=== PATIENT | female | born 1990 | race African-American/Black ===

== ENCOUNTER 2021-04-21 05:52 | Inpatient (IN) ==
[2021-04-21 04:21] LABS: Bacteria,Urine Occasional /HPF (Few); Bilirubin,Urine Negative (Negative); Blood, Urine Negative (Negative); Glucose,Urine (UA) Negative (Negative); Ketones,Urine Negative (Negative); Nitrite,Urine Negative (Negative); Protein,Urine Negative; RBC,Urine 1 /HPF (0-4); Squamous Epithelial Cell,Urine Occasional /HPF (0-10); Urine Appearance CLEAR (Clear); Urine Color Yellow (Yellow); Urine Specific Gravity 1.009 (1.001-1.035)
[~2021-04-21 05:52] MED LIST: BUTORPHANOL 2 MG/ML VIAL IV PRN; LACTATED RINGERS 1,000 ML IV ONE; ONDANSETRON 4 MG/2 ML VIAL IV PRN
[2021-04-21 06:31] LABS: Basophils % 0.3 % (0.0-0.8); Eosinophils # 0.1 10*3/uL (0.0-0.87); Eosinophils % 0.9 % (0.00-10.9); Hematocrit 33.5 VOL% (35.7-47.0); Hemoglobin 10.5 GM/DL (12.0-16.0); Immature Granulocytes Absolute 0.09 #; Lymphocytes # 2.5 10*3/uL (1.4-4.0); Lymphocytes % 27.5 % (21.3-54.2); Mean Corpuscular HGB Conc 31.3 GM/DL (32-36); Mean Corpuscular Volume 89.1 FL (87-102); Mean Platelet Volume 9.7 FL (9.6-12.0); Monocytes % 7.4 % (1.7-12.7); Neutrophils % 62.9 % (38.7-73.9); Platelet Count 383 T/CUMM (130-400); Red Blood Count 3.76 MC/CUMM (3.8-5.5); Red Cell Distribution Width 16.2 % (9.3-17.3)
[2021-04-21] MEDS: LACTATED RINGERS 1,000 ML IV SCH ×2 (06:35→10:06)
[2021-04-21 06:53] LABS: Albumin 2.8 G/DL (3.4-5.0); Bilirubin,Total 0.7 MG/DL (0.2-1.0); Osmolality,Calculated 271.7 MOS/KG (273-304); Potassium 3.9 MMOL/L (3.5-5.1); Total Protein 7.2 G/DL (6.4-8.2)
[2021-04-21] MEDS ORDERED: ePHEDrine 50 MG/ML VIAL IV PRN (07:38)
[2021-04-21] MEDS ORDERED: CITRIC ACID/SODIUM CITRATE 30 ML UDCUP PO ONE (07:38)
[2021-04-21] MEDS ORDERED: FAMOTIDINE 20 MG/2 ML VIAL IV ONE (07:38)
[2021-04-21] MEDS ORDERED: NALOXONE 0.4 MG/ML VIAL IV PRN (07:38)
[2021-04-21] MEDS ORDERED: fentaNYL 2 MCG/ROPIV 0.2% EPID 100 ML EPIDURAL SCH (08:00)
[2021-04-21] MEDS ORDERED: TRANEXAMIC ACID 1,000 MG/10 ML VIAL ONE (09:11)
[2021-04-21] MEDS ORDERED: miSOPROStoL 200 MCG TABLET ONE (09:11)
[2021-04-21] MEDS ORDERED: OXYTOCIN/LR 20 UNIT/1,000 ML BAG IV ONE ×2 (09:11→13:18)
[2021-04-21] MEDS ORDERED: CARBOPROST TROMETHAMINE 250 MCG/ML AMP IM ONE (09:12)
[2021-04-21] MEDS ORDERED: METHYLERGONOVINE 0.2 MG/1 ML AMP ONE (09:12)
[2021-04-21] MEDS ORDERED: OXYTOCIN/LR 20 UNIT/1,000 ML BAG IV SCH (10:30)
[2021-04-21 11:06] LABS: Cord Arterial Blood HCO3 22.1 MMOL/L
[2021-04-21 11:08] LABS: Cord Venous Blood HCO3 22.2 MMOL/L; Cord Venous Blood PCO2 34.4 MMHG; Cord Venous Blood PO2 35.3
[2021-04-21] MEDS ORDERED: ACETAMINOPHEN 325 MG TABLET PO PRN (13:18)
[2021-04-21] MEDS ORDERED: MEASLES/MUMPS/RUBELLA VACCINE 0.5 ML VIAL SUBCUT ONE (13:18)
[2021-04-21] MEDS ORDERED: RHO(D) IMMUNE GLOBULIN 300 MCG SYRINGE IM ONE (13:18)
[2021-04-21] MEDS ORDERED: HYDROCORTISONE 2.5% RECTAL CREAM 30 GM TUBE TOP PRN (13:18)
[2021-04-21] MEDS ORDERED: LANOLIN 50% CREAM 0.3 OZ TUBE TOP PRN (13:18)
[2021-04-21] MEDS ORDERED: DIPH/TET/ACEL PERT BOOSTER VACCINE 0.5 ML VIAL IM ONE (13:18)
[2021-04-21] MEDS ORDERED: BISACODYL 10 MG SUPP RECTAL PRN (13:18)
[2021-04-21] MEDS ORDERED: WITCH HAZEL PADS 100/JAR TOP PRN (13:18)
[2021-04-21] MEDS ORDERED: BENZOCAINE 20%/MENTHOL 0.5% SPRAY 56 GM CAN TOP PRN (13:18)
[2021-04-21] MEDS ORDERED: ACETAMINOPHEN/CODEINE 300-30 MG TABLET PO PRN (13:22)
[2021-04-21] MEDS: IBUPROFEN 800 MG TABLET PO PRN ×2 (13:31→20:08)
[2021-04-21] MEDS: DOCUSATE SODIUM 100 MG CAPSULE PO SCH (20:09)
[2021-04-22] MEDS: oxyCODONE/ACETAMINOPHEN 5-325 MG TABLET PO PRN ×2 (01:47→23:17)
[2021-04-22] MEDS: IBUPROFEN 800 MG TABLET PO PRN ×2 (01:48→23:17)
[2021-04-22 07:19] LABS: Basophils % 0.3 % (0.0-0.8); Eosinophils # 0.2 10*3/uL (0.0-0.87); Eosinophils % 1.8 % (0.00-10.9); Hematocrit 32.3 VOL% (35.7-47.0); Hemoglobin 9.9 GM/DL (12.0-16.0); Immature Granulocytes % 0.6 %; Immature Granulocytes Absolute 0.06 #; Lymphocytes # 3.5 10*3/uL (1.4-4.0); Mean Corpuscular HGB Conc 30.7 GM/DL (32-36); Mean Corpuscular Volume 90.7 FL (87-102); Mean Platelet Volume 9.7 FL (9.6-12.0); Monocytes % 7.4 % (1.7-12.7); Neutrophils % 54.9 % (38.7-73.9); Platelet Count 360 T/CUMM (130-400); Red Blood Count 3.56 MC/CUMM (3.8-5.5); Red Cell Distribution Width 16.4 % (9.3-17.3)
[2021-04-22] MEDS: DOCUSATE SODIUM 100 MG CAPSULE PO SCH ×2 (08:02→20:42)
[2021-04-23] MEDS ORDERED: SIMETHICONE CHEW 80 MG TABLET PO PRN (02:41)
[2021-04-23] MEDS: oxyCODONE/ACETAMINOPHEN 5-325 MG TABLET PO PRN (03:28)
[2021-04-23] MEDS: DOCUSATE SODIUM 100 MG CAPSULE PO SCH (08:25)
[2021-04-23 08:57] VITALS: BP 99/65
== END 2021-04-23 13:12 | disposition home or self-care (01) | DRG 807 ==
LOC: N.LD → N.OB 14:01 → N.LD 14:06 → N.OB 16:15
PROVIDERS: ADMIT Obstetrics & Gynecology; ATTEND Obstetrics & Gynecology